=== PATIENT | female | born 1980 | race Caucasian/White ===

== ENCOUNTER 2023-04-17 08:00 | Outpatient (CLI) | payer BC, SELFPAY ==
--- NOTE | 2023-04-17 08:30 | ECG_ITS ---
Measurements Intervals [place] Rate: 97 P: 49 VT: 129 QRS: 21 QRSD: 87 T: 33 QT: 349 QTc: 445 Interpretive Statements SINUS RHYTHM WITHIN NORMAL LIMITS NO PREVIOUS ECG AVAILABLE FOR COMPARISON Electronically Signed On 04-17-2023 12:40:58 RISK MANAGER by Puma Yadav M.D.
== END 2023-04-17 08:01 | disposition home or self-care (01) ==
LOC: ANHSURGERY 08:04
PROVIDERS: Visit Provider Obstetrics & Gynecology
DX: N92.0 Excessive and frequent menstruation with regular cycle (principal); F17.210 Nicotine dependence, cigarettes, uncomplicated; Z01.818 Encounter for other preprocedural examination
CPT/HCPCS: 36415; 86850; 86900; 86901; 93005

== ENCOUNTER 2023-04-23 00:19 | Day surgery (SDC) | payer BC, SELFPAY ==
[2023-04-15 10:17] VITALS: BMI 36.6
--- NOTE | 2023-04-15 10:21 | PC.NURSE ---
Report to the Outpatient Waiting Room, entrance under the green pavilion located off [facility], at time 10:00 on date 04/23/23. Planned Procedure Time: 12:00. Time changes happen often and if your time is changed the preop area will call you the afternoon before. - You and your visitor will be asked to self-screen and do not enter if you have any COVID symptoms. - A mask is optional within the hospital at this time. Patients may have clear liquids (water, carbonated beverages, clear teas, apple juice) until 3 hours prior to surgery (9:00) with a maximum of 20 ounces. - No food from midnight until time of surgery Take the following medications with a SIP of water the morning of surgery: NONE DO NOT STOP ANY OF YOUR OTHER PRESCRIPTION MEDICATIONS PRIOR TO SURGERY ?EXCEPT THE FOLLOWING Medications to discontinue per physician: VITAMINS Date to take last dose: 04/19/23 Please no make-up, nail azeri, hairspray, perfume, deodorant, or body powder the day of surgery. No jewelry (including any body piercings) or valuables the day of surgery, leave them at home. Please take a shower or bath the night before, or the morning of, surgery with an antibacterial soap. Wear comfortable, loose fitting clothing. - Jewelry must be removed prior to entering the operating room. Rings and piercings that are not removed may be cut off. - The hospital will not accept responsibility for valuables. - Please leave all valuables, including medications, at home the day of surgery. If you are going home after surgery, a licensed lease purchase driver must drive you home. - NO public transportation without another adult if you receive anesthesia. - We recommend that an adult stay with you for 24 hours following discharge. - We also recommend that you do not drive, make important decision, drink alcoholic beverages, or take any drugs that were not prescribed by your health care provider for at least 24 hours after your discharge time. Follow any additional instructions given to you from your surgeon. If you or anyone in your household have experienced Covid symptoms in the past week, please notify your surgeon or the nurse liaison at the phone number below for possible testing. Telephone instructions given to PT - TRINA MCDOWELL and asked if any additional questions and then verbalized understanding. Patient advised to call surgeon office or pre surgery nurse liaison [phone] if any additional questions.
[2023-04-23] VITALS (9 sets, daily range): BP systolic 112–146; BP diastolic 41–89; PULSE 79–95; RESP 12–20; TEMP 36.6–36.8; O2SAT 91–100
[2023-04-23] MEDS: LACTATED RINGERS 1,000 ML 30 ML IV CONT ×3 (10:00→15:10)
[2023-04-23] MEDS: KETOROLAC 15 MG/ML VIAL (*BKC) IV PUSH (10:34)
[2023-04-23] MEDS: ACETAMINOPHEN 500 MG TABLET 1000 MG PO (10:34)
--- NOTE | 2023-04-23 11:28 | P.PNAN_ITS ---
Anes - Initial Pre Proc Eval Procedure: Operation Date: 04/23/23 12:00 Proposed Procedures p Robotic Assisted Hysterectomy with Bilateral Salpingectomy - Shahnaz Rosario MD Date/Time: 04/23/23 11:28 Surgeon: Shahnaz Rosario MD Pre Op Diagnosis: menorrhaghia Patient Data Age: 42 Gender: F Height: 1.65 m Weight: 103.5 kg Last Vital Signs Temp 36.6 C 04/23/23 10:00 Pulse 83 04/23/23 10:00 Resp 18 04/23/23 10:00 BP 146/89 H 04/23/23 10:00 Pulse Ox 96 04/23/23 10:00 O2 Del Method Room Air 04/23/23 10:00 Allergies Allergy/AdvReac Type Severity Reaction Status Date / Time Penicillins Allergy Unknown Hives Verified 04/23/23 10:29 morphine AdvReac Severe Headache Verified 04/15/23 10:15 Home Medications Medication Instructions Recorded Confirmed Type cholecalciferol (vitamin D3) 25 25 mcg PO DAILY 04/15/23 04/15/23 History mcg (1,000 unit) tablet (Vitamin D3) Patient hx anesthesia problems: none Family hx anesthesia problems: none Results Review: All pre-operative results and documents have been reviewed as part of the pre- operative evaluation. [facility] Past Medical History Medical History (Updated 04/23/23 @ 11:28 by Shantanu Fox MD) Obesity Family History Family History Mother Family history of malignant neoplasm of ovary Other Family history of allergic disorder Family history of cardiovascular disease Social History Social History Smoking packs per day: 1 Smoking cigarettes per day: 20.0 Years smoked: 20 Smoking pack-years: 20.00 Smoking status: Current every day smoker Tobacco type: cigarettes Alcohol intake: current Drinks per week: 10 Substance use: never Substance use type: does not use Living arrangements: with family Spiritual care concerns: No Anes - Eval Final PreProcedure Day of Procedure 04/23/23 11:28 Patient weight: obese Heart: regular rate and rhythm Lungs: clear to auscultation Airway: Mallampati scale class II Neurological: alert and oriented Last oral intake: >/= 8 hours ASA classification: III Emergent: no Anesthetic plan: proceed Anesthesia type and monitoring: general ETT and standard monitoring Results Review: All pre-operative results and documents have been reviewed as part of the pre- operative evaluation. Informed Consent: The patient's anesthetic plan and its attendant risks and benefits were discussed with the patient/family/POA. Questions were solicited and answers provided to the satisfaction of the patient/family/POA.
--- NOTE | 2023-04-23 12:00 | WPDHPUPDATE1 ---
History and Physical Update Update Date/Time: 04/23/23 12:00 correction - this is a robotic assisted total hysterectomy with bilateral salpingectomy. History and Physical has been reviewed, including an updated exam of the patient. There are NO changes in the patient's condition. Risks, benefits, and alternatives have been discussed and questions answered. Patient agrees to proceed with procedure.
[2023-04-23] MEDS: ceFAZolin 2 GM/D5W 50 ML 2 GM/50 ML BAG IVPB (12:09)
[2023-04-23] MEDS: SCOPOLAMINE 1 MG PATCH 1 PATCH TRANSDERM (12:55)
[2023-04-23] MEDS: METHYLENE BLUE 0.5% INJ 10 ML AMPULE 5 ML IRRIGATION (13:52)
--- NOTE | 2023-04-23 14:18 | W.PM.PROC2 ---
Procedure Note - Detailed Date of Procedure 04/23/23 Pre-op Diagnosis menorrhaghia Post-op Diagnosis Same Procedure Performed Robot assisted Total hysterectomy with bilateral salpingectomy. Surgeon Shahnaz Rosario MD Anesthesia General Indications heavy vaginal bleeding, pelvic pain Findings normal-appearing uterus, ovaries, and left tube, right tube was partially resected. Some scarring over the posterior cul-de-sac peritoneum. Description of Procedure This patient was taken to the operating room. She was prepped and draped in the dorsal lithotomy position after induction of general anesthesia. The uterine manipulator and Ranjeet cup were placed. This was done with a speculum and tenaculum. The speculum was placed. The cervix was grasped with a tenaculum. The stay sutures were placed at 3 and 9:00 a.m.. The stay sutures of 0 Vicryl were tied to the appropriately Size scope after it was slipped around the cervix.. The tip of the CHERIE manipulator was placed in the intrauterine cavity. The cup was slid into place around the cervix and into the fornices. It was locked into place. The sutures were then wrapped around the handle and tied under tension. A 8 mm skin incision was made in the left upper quadrant the abdomen. a 5 mm Visiport trocar was inserted into abdominal cavity and pneumoperitoneum was achieved. A 8 mm supraumbilical incision was made and a 8 mm trocar was inserted into the intrauterine cavity under direct visualization of the scope. an 8 mm incision was made in the right upper quadrant of the abdomen and an 8 mm robotic trocar was placed the inter uterine cavity under direct visualization the scope. An 11 mm trocar was inserted in the right upper quadrant of the abdomen rectal is a cystoscope after an incision was made there as well. The robot was docked. Electronic Orientation of the robot was performed. Bilateral ureteral lysis was performed. This was done from the pelvic brim down to the uterine artery. This was done with careful dissection using sharp and blunt dissection. The fallopian tubes were removed bilaterally. The mesosalpinx around the fallopian tubes were cauterized transected with LigaSure cautery. This was done in a bilateral fashion from the ovary to the uterine cornua. The fallopian tube was transected at the uterine cornu and amputated. The tube was taken out the left lower quadrant trocar site. In a stepwise fashion along the lateral aspects of the uterus the round ligament and broad ligaments were cauterized transected down to the level of the uterine arteries. A bladder flap was created in the bladder was moved distally to the end of the cervix and over the Ranjeet cup. The bilateral uterine arteries were cauterized and transected. Colpotomy was then performed. In a circumferential fashion the vagina was transected using unipolar cautery. The incision was made down on the Ranjeet cup. The uterus and cervix were taken out through the vagina. A pneumo occluder was placed in the vagina. The vaginal cuff was closed with a 0 V lock suture in a running fashion. The pelvis was irrigated with copious amounts antibiotic irrigation. The ureters were again examined and found to be intact and flowing freely under the uterine arteries into the bladder. The bladder was intact. It was examined directly. Cystoscopy was performed after administration of both the blue. Blue fluid was seen to egress from both ureteral orifices of the bladder. The vagina was irrigated with Betadine solution after removal of the Pneumo occluder. the trocars were removed after the robot was undocked. The skin was closed with subacute or Dermabond. The patient was taken to recovery room. She was stable condition. Sponge lap and needle counts were correct x2. Estimated Blood Loss 125 Urine Output 800 Drains Yes Packing No Pathology Yes Complications No immediate complications Condition Stable Disposition Floor
[2023-04-23] MEDS: fentaNYL CITRATE INJ (*CRX) 100 MCG/2 ML VIAL 25 MCG IV PUSH ×4 (14:33→14:55)
--- NOTE | 2023-04-23 15:50 | PC.NURSE ---
This patient, Lary Ennis, was received from PACU on 04/23/23 at 1550. Patient/family oriented to unit policies and routines
[2023-04-23] MEDS: SIMETHICONE 80 MG TAB.CHEW PO (16:04)
[2023-04-23] MEDS: DEXTROSE 5%/0.45% SOD CHL 1,000 ML 125 ML IV CONT (16:04)
[2023-04-23] MEDS: KETOROLAC 30 MG/ML VIAL (*BKC) IV PUSH (16:05)
[2023-04-23] MEDS: HYDROcodone/acetaminophen (*CRX) 5-325 MG TABLET 1 TAB PO (18:00)
[2023-04-24 00:20] VITALS: BP 108/62; PULSE 81; RESP 18; TEMP 36.8; O2SAT 96
[2023-04-24] MEDS: HYDROcodone/acetaminophen (*CRX) 5-325 MG TABLET 1 TAB PO ×2 (00:22→08:13)
[2023-04-24 05:53] VITALS: BP 103/53; PULSE 84; RESP 16; TEMP 37.2; O2SAT 97
--- NOTE | 2023-04-24 07:25 | PM.GYNPNOP ---
SWATCH CLERK - A/P Postoperative Procedures: Procedures Operation Date: 04/23/23 12:00 Actual Procedure Side Surgeon p Robotic Assisted Hysterectomy with Bilateral Salpingectomy Bilateral Shahnaz Rosario MD Postoperative day: 1 Postoperative status: doing well Postoperative plan: see orders Time Spent With Patient Time: Total time spent is greater than 50% in coordination of care (as documented) at patient's floor/unit and/or counseling patient: Time with patient: less than 15 minutes SWATCH CLERK- PN:Subj Post-Op Subjective Date/time seen: 04/24/23 07:25 Subjective: patient reports feeling better, patient has no complaints and pain is well controlled Exam Const: General: healthy appearing, comfortable and no acute distress Resp: Auscultation: clear to auscultation bilaterally, no rales, no rhonchi and no wheezes Cardio: Rate: regular rate Heart sounds: no click, no murmurs and no rubs GI: Inspection: non-distended Auscultation: normal bowel sounds Extrem: General: normal to inspection, no pedal edema and no calf tenderness SWATCH CLERK - PN: Obj Data Vital Signs Vital Signs: Vital Signs - 24 hr 04/23/23 10:00 04/23/23 14:20 04/23/23 14:30 Temperature 97.8 F 97.8 F Pulse Rate 83 95 90 Respiratory Rate 18 20 12 Blood Pressure 146/89 H 125/41 L 119/69 Pulse Oximetry 96 100 100 Oxygen Delivery Room Air Simple Face Mask Simple Face Mask Oxygen Flow Rate 8 8 04/23/23 14:45 04/23/23 15:00 04/23/23 15:15 Temperature Pulse Rate 92 90 84 Respiratory Rate 16 16 14 Blood Pressure 127/59 L 124/72 130/66 Pulse Oximetry 96 94 93 Oxygen Delivery Room Air Room Air Room Air Oxygen Flow Rate 04/23/23 15:25 04/23/23 15:45 04/23/23 20:32 Temperature 98 F 98.3 F Pulse Rate 92 79 91 Respiratory Rate 14 14 18 Blood Pressure 127/74 118/62 112/63 Pulse Oximetry 97 91 96 Oxygen Delivery Room Air Oxygen Flow Rate 04/24/23 00:20 04/24/23 00:20 04/24/23 05:53 Temperature 98.2 F 99.0 F Pulse Rate 81 81 84 Respiratory Rate 18 18 16 Blood Pressure 108/62 103/53 L Pulse Oximetry 96 96 97 Oxygen Delivery Room Air Oxygen Flow Rate 04/24/23 05:53 Temperature Pulse Rate 84 Respiratory Rate 16 Blood Pressure Pulse Oximetry 97 Oxygen Delivery Room Air Oxygen Flow Rate Intake/Output Intake/Output: Intake & Output 04/21/23 04/22/23 04/23/23 04/24/23 23:59 23:59 23:59 23:59 Intake Total 700 1300 Output Total 860 775 Balance -160 525 Meds/Results Medications: Active Medications Generic Name Dose Route Start Last Admin Trade Name Freq PRN Reason Stop Dose Admin Hydrocodone Bitart/Acetaminophen 1 tab 04/23/23 15:29 04/24/23 00:22 Hydrocodone/Acetaminophen (*Crx) 5-325 Mg Tablet PO 1 tab Q3H PRN Administration Pain Rated 5 or Less Hydrocodone Bitart/Acetaminophen 1 tab 04/23/23 15:29 Hydrocodone/Acetaminophen (*Crx) 10-325 Mg Tablet PO Q3H PRN Pain Rated 6 or Greater Dextrose/Sodium Chloride 1,000 mls @ 125 mls/hr 04/23/23 15:29 04/24/23 00:18 Dextrose 5% Sodium Chloride 0.45% IV CONT Infused .Q8H SIMONE Infusion Ibuprofen 600 mg 04/23/23 15:29 Ibuprofen 600 Mg Tablet PO Q6H PRN Cramping Ketorolac Tromethamine 30 mg 04/23/23 15:29 04/23/23 16:05 Ketorolac 30 Mg/Ml Vial (*Bkc) IV PUSH 04/28/23 15:28 30 mg Q6H PRN Administration Pain Rated 4-6 Naloxone HCl 0.1 mg 04/23/23 15:29 Naloxone Hcl 0.4 Mg/Ml Vial IV PUSH Q2M PRN Respiratory rate less than 10 Ondansetron HCl 4 mg 04/23/23 15:29 Ondansetron Inj 4 Mg/2 Ml Vial IV PUSH Q6H PRN Nausea And Vomiting Simethicone 80 mg 04/23/23 17:00 04/23/23 16:04 Simethicone 80 Mg Tab.Chew PO 80 mg TIDWM SIMONE Administration
[2023-04-24 07:59] VITALS: BP 107/57; PULSE 89; RESP 18; TEMP 37.2; O2SAT 97
[2023-04-24] MEDS: IBUPROFEN 600 MG TABLET PO (08:13)
[2023-04-24] MEDS: SIMETHICONE 80 MG TAB.CHEW PO (08:13)
== END 2023-04-24 10:10 | disposition home or self-care (01) ==
LOC: ANHSURGERY 13:15 → ANHOB2 15:32
PROVIDERS: Visit Provider Obstetrics & Gynecology
PROC: (CPT 58571; principal; 2023-04-23 12:00)
DX: D25.1 Intramural leiomyoma of uterus (principal); N88.8 Other specified noninflammatory disorders of cervix uteri; N83.8 Other noninflammatory disorders of ovary, fallopian tube and broad ligament; N92.0 Excessive and frequent menstruation with regular cycle; F17.210 Nicotine dependence, cigarettes, uncomplicated; E66.9 Obesity, unspecified; Z68.38 Body mass index [BMI] 38.0-38.9, adult
CPT/HCPCS: 58571; S2900; 88307; 99199; A9270; J0690; J1100; J1170; J1885; J2250; J2405; J2704; J3010; J7030; J7120; Q9968

== ENCOUNTER 2023-04-29 14:47 | Inpatient (IN) | payer BC, SELFPAY ==
[2023-04-29] VITALS (10 sets, daily range): BP systolic 108–135; BP diastolic 40–72; PULSE 111–141; RESP 16–25; TEMP 38.5–39.5; O2SAT 93–100; BMI 38.2
--- NOTE | ~2023-04-29 | XR_ITS ---
EXAMINATION: XR chest 1V portable DATE: 04/29/2023 16:22 INDICATION: Postoperative fever and weakness TECHNIQUE: frontal view of the chest was obtained. COMPARISON: None FINDINGS: Bandlike opacity at the right mid and left lower lung zones, with configuration favoring discoid atel ectasis over pneumonia. No pulmonary edema, pleural effusion or pneumothorax. The cardiomediastinal s ilhouette is normal. Visualized bones and soft tissues are unremarkable. IMPRESSION: 1. Bandlike opacities in the right mid and left lower lung zones with configuration favoring discoid atelectasis over pneumonia. Reviewed, dictated and finalized at location A. AGE DRIER IMPRESSION: 1. Bandlike opacities in the right mid and left lower lung zones with configura tion favoring discoid atelectasis over pneumonia.
--- NOTE | ~2023-04-29 | CT_ITS ---
EXAMINATION: CTA chest PE abdomen pel DATE: 04/29/2023 17:19 INDICATION: Shortness of breath and fever. Postop from hysterectomy. TECHNIQUE: Computed tomography angiography (CTA) of the chest was performed with 100 mL Omnipaque-350 intravenous contrast timed to evaluate the pulmonary arteries. Coronal maximum intensity projection 3D-reconstructions were created by the technologist. Computed tomography (CT) of the abdomen and pelv is was performed with intravenous contrast. Automated exposure control and iterative reconstruction t echnique were employed. The dose-length product was 2721.80 mGy-cm. COMPARISON: CT abdomen and pelvis 07/06/2016 FINDINGS: CTA chest: The lungs demonstrate mild atelectasis. There are trace pleural effusions. The heart size is normal. No pericardial effusion. There is no pulmonary embolus. There is moderate thoracic spondyl osis. CT abdomen and pelvis: The liver, gallbladder, spleen, pancreas, adrenal glands, and kidneys are norm al. There is 8.2 x 6.5 x 4.7 cm collection of fluid and gas in the pelvis. There is fat stranding and gas in the peritoneum and body wall, consistent with recent surgery. There are no pathologically enl arged lymph nodes. There is moderate lumbar spondylosis. IMPRESSION: 1. 8.2 x 6.5 x 4.0 cm postoperative fluid collection in the hysterectomy bed, consistent with abscess versus subacute hematoma. 2. No pulmonary embolus. Reviewed, dictated and finalized at location E. ER SCANNING TECHNICIAN IMPRESSION: 1. 8.2 x 6.5 x 4.0 cm postoperative fluid collection in the hysterectomy bed, c onsistent with abscess versus subacute hematoma. 2. No pulmonary embolus.
--- NOTE | 2023-04-29 15:22 | ECG_ITS ---
Measurements Intervals [place] Rate: 127 P: 28 WA: 115 QRS: 9 QRSD: 92 T: 5 QT: 325 QTc: 474 Interpretive Statements SINUS TACHYCARDIA WITH SHORT WA INTERVAL BORDERLINE ST-T WAVE ABNORMALITY- INF/LAT LEADS LEADS BASELINE ARTIFACT- I, III, AVL ABNORMAL ECG COMPARED TO ECG 04/17/2023 08:23:14 [address] NOW PRESENT ST (T WAVE) DEVIATION NOW PRESENT Electronically Signed On 04-29-2023 16:34:54 STEEL PLACER by Hemal Antunez D.O.
--- NOTE | 2023-04-29 15:27 | ED.FEVER ---
HPI - Fever General Chief Complaint: Fever <TAMI Miller Last Filed: 05/01/23 20:20> Stated Complaint: fever s/p hysterectomy <TAMI Miller Last Filed: 05/01/23 20:20> Time Seen by Provider: 04/29/23 15:27 <TAMI Miller Last Filed: 05/01/23 20:20> Focused HPI: This is a 42 year old female that presents to the ER for fever. Associated with nausea, vomiting, and cough. Reports recent hysterectomy with Dr. Rosario. GENERAL: Ill-appearing, well-nourished, and in no acute distress. HEAD: Normocephalic, atraumatic. CHEST: Clear to auscultation. ?No respiratory distress. HEART: Regular rhythm, tachycardic NEURO: ?Alert and oriented x3. Patient screened in triage and initial orders placed.? ?Additional care and disposition to be based upon?diagnostic testing and treatment. <TAMI Miller Last Filed: 05/01/23 20:20> Related Data Home Medications: Home Medications Medication Instructions Recorded Confirmed cholecalciferol (vitamin D3) 25 25 mcg PO DAILY 04/15/23 04/29/23 mcg (1,000 unit) tablet (Vitamin D3) oxycodone-acetaminophen 5 mg-325 1 tablet PO Q4H PRN Pain (Scale 04/29/23 04/29/23 mg tablet Score 7-10) <TAMI Miller Last Filed: 05/01/23 20:20> Allergies/Adverse Reactions: Allergies Allergy/AdvReac Type Severity Reaction Status Date / Time Penicillins Allergy Unknown Hives Verified 04/30/23 09:38 morphine AdvReac Severe Headache Verified 04/29/23 20:49 <TAMI Miller Last Filed: 05/01/23 20:20> Review of Systems Review of Systems: CONSTITUTIONAL: Reports fever RESPIRATORY: Reports cough GASTROINTESTINAL: Reports abdominal pain, nausea, vomiting <TAMI Miller Last Filed: 05/01/23 20:20> All systems reviewed & are unremarkable except as noted in HPI and below <TAMI Miller Filed: 05/01/23 20:20> PMFSH Past Medical History Medical History: Medical History (Updated 04/30/23 @ 11:48 by Shahnaz Rosario MD) Multiple sclerosis Obesity <Claire Chapman PA-C - Last Filed: 05/01/23 20:20> Surgical History Surgical History: Surgical History (Updated 04/30/23 @ 11:33 by Og Doe DO) History of History of hysterectomy <Claire Chapman PA-C - Last Filed: 05/01/23 20:20> Family History Family History: Family History Mother Family history of malignant neoplasm of ovary Other Family history of allergic disorder Family history of cardiovascular disease <Calire Chapman PA-C - Last Filed: 05/01/23 20:20> Social History Social History: Social History Smoking packs per day: 1 Smoking cigarettes per day: 20.0 Years smoked: 20 Smoking pack-years: 20.00 Smoking status: Current every day smoker Tobacco type: cigarettes Alcohol intake: current Drinks per week: 1 Substance use: never Substance use type: does not use Do You Feel Safe in your Home?: Yes Lack of Transportation: No Lack of Food: Never True Current Housing: I Have Housing Concerned About Future Housing: No Difficulty Paying Gas/Electric Bills: No Difficulty Paying for Meds: No Currently Unemployed: No Education: Associate Degree Difficulty w/ Childcare or Family Care: No Living arrangements: with family Spiritual care concerns: No <Claire Chapman PA-C - Last Filed: 05/01/23 20:20> Exam Narrative: GENERAL: Ill-appearing, well-nourished, and in no acute distress. HEAD: Normocephalic, atraumatic. EYES: EOMI. CHEST: Clear to auscultation. No respiratory distress. No wheezes rales or rhonchi HEART: Regular rate and rhythm. No murmur heard. Normal peripheral pulses. ABDOMEN: Soft, nondistended. Incisions are clean/dry/intact EXTREMITIES: Normal range of motion. No edema. SKIN: Warm, dry, no rash. NEURO: No focal
[2023-04-29] MEDS: ONDANSETRON INJ 4 MG/2 ML VIAL IV PUSH ×2 (16:25→18:16)
[2023-04-29 16:26] LABS: Basophils Percent Auto 0.3 % (0.2-1.2); Hematocrit 37.3 % (37.0-47.0); Hemoglobin 12.3 g/dL (12.0-15.0); Immature Granulocyte Absolute 0.08 K/mm3 (0.00-0.031); Immature Granulocyte Percent A 0.5 % (0-0.5); Lymphocytes Absolute Auto 0.98 K/mm3 (0.9-3.2); Lymphocytes Percent Auto 6.6 % (18.3-44.2); Mean Platelet Volume 9.7 fl (7.4-10.4); Monocytes Absolute Auto 0.9 K/mm3 (0.1-0.6); Monocytes Percent Auto 5.7 % (2.6-8.5); Neutrophils Absolute Auto 12.8 K/mm3 (1.3-6.7); Neutrophils Percent Auto 86.9 % (45.5-73.1); Platelet Count Result 339 k/mm3 (150-375); Red Cell Distribution Width 13.7 % (11.5-14.5); White Blood Count 14.8 K/mm3 (4.5-10.0)
[2023-04-29] MEDS: SODIUM CHLORIDE 0.9% IV 1,000 ML 999 ML IV CONT (16:26)
[2023-04-29 16:38] LABS: Partial Thromboplastin Time 35.3 SECONDS (22.3-36.8)
--- NOTE | 2023-04-29 16:41 | ED.FEVER ---
HPI - Fever General Chief Complaint: Fever Stated Complaint: fever s/p hysterectomy Time Seen by Provider: 04/29/23 15:27 History of Present Illness HPI Narrative: Patient is a 42-year-old female here with fever and fatigue. She had a hysterectomy performed [address] Rosario. She states that she was feeling quite well and healing as expected. On Thursday she was up walking around and no longer had any postoperative vaginal bleeding. She states that she has been having constipation since her procedure. She has been using multiple laxatives. She believes that the opiates she was taken postoperatively likely contribute to her constipation and discontinue these on Thursday. She has only been having liquid stool output since that time but does feel the urge to defecate. She denies any abdominal pain. No vaginal discharge or bleeding. No urinary symptoms. Yesterday she began feeling poorly with more fatigue. This morning she woke up drenched in sweat and took an ibuprofen around 10 30 this morning. She did contact Dr. Leyva office who recommended she come into the emergency department for evaluation. She has had a mild cough which is nonproductive in nature. No known sick contacts. Related Data Home Medications Medication Instructions Recorded Confirmed cholecalciferol (vitamin D3) 25 25 mcg PO DAILY 04/15/23 04/15/23 mcg (1,000 unit) tablet (Vitamin D3) Allergies Allergy/AdvReac Type Severity Reaction Status Date / Time Penicillins Allergy Unknown Hives Verified 04/23/23 10:29 morphine AdvReac Severe Headache Verified 04/15/23 10:15 Review of Systems Review of Systems: All systems reviewed & are unremarkable except as noted in HPI and below PMFSH Past Medical History Medical History (Updated 04/29/23 @ 17:49 by Angélica Richmond MD) Obesity Family History Family History Mother Family history of malignant neoplasm of ovary Other Family history of allergic disorder Family history of cardiovascular disease Social History Social History Smoking packs per day: 1 Smoking cigarettes per day: 20.0 Years smoked: 20 Smoking pack-years: 20.00 Smoking status: Current every day smoker Tobacco type: cigarettes Alcohol intake: current Drinks per week: 10 Substance use: never Substance use type: does not use Living arrangements: with family Spiritual care concerns: No Exam Narrative: GENERAL: Well-appearing, well-nourished, and in no acute distress. HEAD: Normocephalic, atraumatic. EYES: PERRLA and EOMI. ENT: Nares clear. Mucous membranes moist. NECK: Supple. CHEST: Clear to auscultation. No respiratory distress. HEART: Regular rate and rhythm. Normal peripheral pulses. ABDOMEN: Soft, nontender, nondistended. Three laparoscopic incision boards appear clean and dry with overlying skin glue present. No surrounding erythema, no tenderness. EXTREMITIES: Normal range of motion. No edema. SKIN: Warm to touch, dry, no rash. NEURO: No focal deficits. Alert and oriented x3. PSYCH: Normal mood and affect. Course SCIENTIFIC RESEARCH ASSOCIATE/PA Physician Supervision MSE performed in triage by midlevel. 1642 chart review performed by myself. Triage vitals show tachycardia, fever of 103.1. Patient here for fever, had hysterectomy [address] Rosario. Triage workup reviewed. White blood cell count of 14.8. CXR shows band like opacity in mid right and left lower lobes favoring atelectasis. Patient seen evaluated, nontoxic appearing. Additional septic lab work ordered including a lactic and a 30 cc/kg IV fluid bolus. Will do CT chest to evaluate for possible PE as well as pneumonia. CT abdomen pelvis ordered to evaluate for possible postoperative infectious process. Patient currently denying any pain and refusing pain medication. CT negative for PE. CT abdomen pelvis shows a 8 x 6 x 4 mm postopera
[2023-04-29 16:58] LABS: Alanine Aminotransferase 17 U/L (6-35); Alkaline Phosphatase 133 U/L (38-126); Anion Gap 10 mmol/L (8-16); Aspartate Amino Transferase 23 U/L (14-36); Bilirubin,Total 0.4 mg/dL (0.2-1.3); Blood Urea Nitrogen 10 mg/dL (7-17); Calcium 9.1 mg/dL (8.4-10.2); Carbon Dioxide 23 mmol/L (22-30); Chloride 100 mmol/L (98-107); Estimated CRCL calculation 126 ml/min; Estimated Glomerular Filt Rate > 60; Glucose 130 mg/dL (65-110); Potassium 3.2 mmol/L (3.4-5.0); Sodium 133 mmol/L (137-145)
[2023-04-29 17:06] LABS: Influenza A QL RT-PCR Negative (Negative); Influenza B QL RT-PCR Negative (Negative); RSV RNA, RT-PCR Negative (Negative); SARS-CoV-2 RNA PCR Negative (Negative)
[2023-04-29] MEDS: LACTATED RINGERS 1,000 ML 999 ML IV CONT ×2 (17:20)
[2023-04-29 17:23] LABS: Appearance Urine Cloudy (Clear); Bacteria Urine 4+ /hpf; Bilirubin Urine Negative (Negative); Blood Urine 3+ (Negative); Color Urine Dark Yellow (Yellow); Glucose Urine UA Negative (Negative); Ketones Urine 1+ mg/dL (Negative); Leukocyte Esterase Ur 1+ LEU/UL (Negative); Need Manual Microscopic Reviewed; Nitrate Urine Negative (Negative); Protein Urine 2+ mg/dL (Negative); Specific Grav Ur 1.026 (1.001-1.035); Squamous Epithelial Cell Urine Moderate /hpf (Few); Urobilinogen Urine 0.2 mg/dL (<2.0); WBC Urine 51-100 /hpf; pH Urine 5.5 (5.0-9.0)
[2023-04-29 17:25] LABS: Add Urine Microscopic? YES
[2023-04-29 17:43] LABS: CRP 30.8 mg/dL (<1.0)
[2023-04-29 18:11] LABS: Lipase 39 U/L (23-300)
[2023-04-29] MEDS: ACETAMINOPHEN 500 MG TABLET 1000 MG PO (18:18)
[2023-04-29] MEDS: CEFEPIME 2 GM/NS 50 ML 2 GM/50 ML BAG IVPB (18:19)
[2023-04-29] MEDS: SODIUM CHLORIDE 0.9% IV 250 ML 999 ML (19:10)
[2023-04-29] MEDS: metroNIDAZOLE 500 MG/ISO 100ML 500 MG/100 ML BAG 100 MG IVPB (20:00)
[2023-04-29] MEDS: VANCOMYCIN 1,250 MG/NS 250 ML 1,250 MG/250 ML BAG 166.67 MG IVPB ×2 (20:01→21:29)
--- NOTE | 2023-04-29 20:32 | ADMGEN ---
This patient, Lary Ennis, was admitted to Medical Room 347-. Patient/family oriented to hospital policies and general routines including ID bracelet, bed and alarms, visiting hours, pain management, procedures, bathroom and other care routines, personal items, smoking policy, room service/diet, and visiting hours. Information on how to activate the Rapid Response Team has been discussed. Patient/Family are encouraged to report perceived risks to care and to ask questions if they do not understand what they are told or what they should do.
[2023-04-29] MEDS: LACTATED RINGERS 1,000 ML 150 ML IV CONT (21:29)
[2023-04-29 22:51] LABS: MRSA (PCR) NOT DETECTED (NOT DETECTE)
[2023-04-30] VITALS (17 sets, daily range): BP systolic 100–135; BP diastolic 55–75; PULSE 80–110; RESP 14–24; TEMP 36.2–39.3; O2SAT 92–99
[2023-04-30] MEDS: IBUPROFEN 400 MG TABLET 800 MG PO (00:18)
[2023-04-30] MEDS: LACTATED RINGERS 1,000 ML 150 ML IV CONT ×2 (00:20→14:48)
[2023-04-30 06:17] LABS: Estimated CRCL calculation 126 ml/min; Estimated Glomerular Filt Rate > 60
[2023-04-30] MEDS: VANCOMYCIN 1,500 MG/NS 500 ML 1,500 MG/500 ML BAG 250 MG IVPB ×2 (08:40→20:01)
[2023-04-30] MEDS: cefTRIAXone 2 GM/NS 100 ML 2 GM/100 ML BAG IVPB (10:00)
[2023-04-30] MEDS: metroNIDAZOLE 500 MG/ISO 100ML 500 MG/100 ML BAG 100 MG IVPB (10:38)
--- NOTE | 2023-04-30 11:32 | WPDANESEPPF ---
Anes - Initial Pre Proc Eval Procedure: Operation Date: 04/30/23 13:00 Proposed Procedures p Incision and Drainage of Pelvic and Vaginal Abscess with Drain Placement - Shahnaz Rosario MD Date/Time: 04/30/23 11:32 Surgeon: Shahnaz Rosario MD Pre Op Diagnosis: Post operative pelvic abscess Patient Data Age: 42 Gender: F Height: 1.65 m Weight: 104.4 kg Last Vital Signs Temp 36.8 C 04/30/23 05:46 Pulse 80 04/30/23 08:04 Resp 16 04/30/23 05:46 BP 100/64 04/30/23 05:46 Pulse Ox 97 04/30/23 09:55 O2 Del Method Room Air 04/30/23 09:55 Allergies Allergy/AdvReac Type Severity Reaction Status Date / Time Penicillins Allergy Unknown Hives Verified 04/30/23 09:38 morphine AdvReac Severe Headache Verified 04/29/23 20:49 Home Medications Medication Instructions Recorded Confirmed Type cholecalciferol (vitamin D3) 25 25 mcg PO DAILY 04/15/23 04/29/23 History mcg (1,000 unit) tablet (Vitamin D3) oxycodone-acetaminophen 5 mg-325 1 tablet PO Q4H PRN Pain (Scale 04/29/23 04/29/23 History mg tablet Score 7-10) Laboratory Tests 04/29/23 04/29/23 04/29/23 16:15 16:15 16:16 WBC 14.8 H K/mm3 (4.5-10.0) RBC 4.10 L M/mm3 (4.2-5.4) Hgb 12.3 g/dL (12.0-15.0) Hct 37.3 % (37.0-47.0) MCV 91.0 fl (80-100) MCH 30.0 pg (26-34) MCHC 33.0 g/dl (32-36) RDW 13.7 % (11.5-14.5) Plt Count 339 k/mm3 (150-375) MPV 9.7 fl (7.4-10.4) Immature Gran % (Auto) 0.5 % (0-0.5) Neut % (Auto) 86.9 H % (45.5-73.1) Lymph % (Auto) 6.6 L % (18.3-44.2) Rice % (Auto) 5.7 % (2.6-8.5) Eos % (Auto) 0.0 % (0-4.4) Baso % (Auto) 0.3 % (0.2-1.2) Lymph # (Auto) 0.98 K/mm3 (0.9-3.2) Rice # (Auto) 0.9 H K/mm3 (0.1-0.6) Eos # (Auto) 0.0 K/mm3 (0-0.3) Baso # (Auto) 0.0 K/mm3 (0.0-0.1) Abs Immat Gran (auto) 0.08 H K/mm3 (0.00-0.031) Absolute Neuts (auto) 12.8 H K/mm3 (1.3-6.7) Absolute Nucleated RBC 0.0 K/mm3 (0.0-0.012) Nucleated RBC % 0.0 % (0.0-0.2) PT 14.0 Seconds (11.1-14.7) INR 1.0 APTT 35.3 SECONDS (22.3-36.8) Sodium 133 L mmol/L (137-145) Potassium 3.2 L mmol/L (3.4-5.0) Chloride 100 mmol/L (98-107) Carbon Dioxide 23 mmol/L (22-30) Anion Gap 10 mmol/L (8-16) BUN 10 mg/dL (7-17) Creatinine 0.60 L mg/dL (0.7-1.0) Estim Creat Clear Calc 126 ml/min Estimated GFR > 60 (59 - ) Glucose 130 H mg/dL (65-110) Lactic Acid 1.0 mmol/L (0.7-2.0) Calcium 9.1 mg/dL (8.4-10.2) Total Bilirubin 0.4 mg/dL (0.2-1.3) AST 23 U/L (14-36) ALT 17 U/L (6-35) Alkaline Phosphatase 133 H U/L (38-126) C-Reactive Protein 30.8 H mg/dL (<1.0) Total Protein 7.0 g/dL (6.3-8.2) Albumin 4.0 g/dL (3.5-5.1) Lipase 39 U/L Cancelled (23-300) Urine Color Urine Appearance Urine pH Ur Specific [place] Urine Protein Urine Glucose (UA) Urine Ketones Ur Blood (Man) Urine Nitrate Urine Bilirubin Urine Urobilinogen Add Ur Microanalysis Leukocyte Esterase Rfl Urine RBC Urine WBC Ur Squamous Epith Cells Urine Bacteria Urine Casts Nasal MRSA (PCR) Influenza A (RT-PCR) Negative (Negative) Influenza B (RT-PCR) Negative (Negative) RSV (RT-PCR) Negative (Negative) SARS-CoV-2 RNA (RT-PCR) Negative (Negative) 04/29/23 04/29/23 04/30/23 17:
[2023-04-30] MEDS: LACTATED RINGERS 1,000 ML 30 ML IV CONT (11:40)
--- NOTE | 2023-04-30 11:45 | PM.IMHP ---
H&P: HPI History of Present Illness Date/Time: 04/30/23 11:45 Chief Complaint: fever Narrative: 42-year-old female who presents emergency department with fever and diarrhea. Very little pelvic pain. She was 1 week postop from us hysterectomy. Laparoscopic hysterectomy. Imaging showed a 8 cm pelvic abscess over the vaginal cuff. Discussed treatment options with patient. Options offered included a CT-guided drain placement and transvaginal drain placement in the operating room. Observation with antibiotics was also offered. We agreed to place the drain transvaginally with I and D of the abscess. She understands risks. She understands that injuries may occur as result in hospitalization, more surgery, and severe illness. She understands risk of hemorrhage. She denies any nausea, vomiting, fever, chills. She denies any chest pain shortness of breath. Review of Systems Review of Systems: All systems reviewed & are unremarkable except as noted in HPI and below Constitutional: Constitutional: Denies chills, Denies fatigue, Denies fever(s) and Denies weakness Eyes: Eyes: Denies blurry vision, Denies change in vision, Denies loss of peripheral vision, Denies loss of vision, Denies other visual disturbances and Denies eye pain ENT: Denies vertigo, Denies dizziness, Denies hearing loss, Denies mouth pain, Denies nasal obstruction, Denies neck mass and Denies neck pain Cardiovascular: Cardiovascular: Denies chest pain, Denies diaphoresis, Denies syncope, Denies leg edema and Denies dyspnea Respiratory: Respiratory: Denies chest congestion, Denies cough, Denies hemoptysis, Denies dyspnea and Denies wheezing Gastrointestinal: Gastrointestinal: Denies abdominal pain, Denies constipation, Denies diarrhea, Denies nausea and Denies vomiting Genitourinary: Genitourinary: Denies hematuria, Denies change in libido, Denies nocturia, Denies genital lesions, Denies flank pain and Denies urinary urgency Musculoskeletal: Musculoskeletal: Denies abnormal gait, Denies back pain, Denies myalgias, Denies arthralgias, Denies joint swelling, Denies muscle weakness and Denies neck pain Integumentary/Breasts: Skin/Breast: Denies swelling, Denies breast pain, Denies breast mass, Denies dry skin, Denies nipple discharge, Denies unusual bruising and Denies jaundice Neurologic: Denies Neuro-related abnormal movements, Denies Abnormal speech present, Denies abnormal gait, Denies behavioral changes, Denies confusion, Denies vertigo, Denies dizziness, Denies syncope, Denies loss of vision, Denies memory loss, Denies convulsions and Denies weakness Psychiatric: Psychiatric: Denies abnormal sleep pattern, Denies behavioral changes, Denies change in libido, Denies confusion, Denies depression, Denies anhedonia and Denies memory loss Endocrine: Endocrine: Reports no additional endocrine complaints, Denies change in libido and Denies fatigue Hematologic/Lymphatic: Hematologic/Lymphatic: Reports no additional hematologic/lymphatic complaints Allergic/Immunologic: Allergic/Immunologic: Reports no additional allergic/immunologic complaints and Denies wheezing PMFSH Past Medical History Medical History (Updated 04/30/23 @ 11:48 by Shahnaz Rosario MD) Multiple sclerosis Obesity Surgical History Surgical History (Updated 04/30/23 @ 11:33 by Og Doe DO) History of History of hysterectomy Family History Family History Mother Family history of malignant neoplasm of ovary Other Family history of allergic disorder Family history of cardiovascular disease Social History Social History Smoking packs per day: 1 Smoking cigarettes per day: 20.0 Years smoked: 20 Smoking pack-years: 20.00 Smoking status: Current every day smoker Tobacco type: cigarettes Alcohol intake: current Drinks per week: 1 Substance use: never
--- NOTE | 2023-04-30 11:49 | WPDHPUPDATE1 ---
History and Physical Update Update Date/Time: 04/30/23 11:49 History and Physical has been reviewed, including an updated exam of the patient. There are NO changes in the patient's condition. Risks, benefits, and alternatives have been discussed and questions answered. Patient agrees to proceed with procedure.
[2023-04-30] MEDS: SCOPOLAMINE 1 MG PATCH 1 PATCH TRANSDERM (12:04)
--- NOTE | 2023-04-30 12:33 | PC.NURSE ---
Pt to PACU at 1135 04/30/23.
--- NOTE | 2023-04-30 12:59 | P.OP_ITS ---
Procedure Note - Detailed Date of Procedure 04/30/23 Pre-op Diagnosis Post operative pelvic abscess Post-op Diagnosis Same Procedure Performed Transvaginal I and D of pelvic abscess with drain placement. Surgeon Shahnaz Rosario MD Anesthesia MAC Findings Tense mass at the apex of the vagina. Intact cuff. Description of Procedure the patient was taken the operating room. She was prepped and draped in the dorsal lithotomy position. This was done after MAC anesthesia was applied. Speculum was placed in the vagina. A space in the vaginal cuff was open and using a packing forceps. The abscess was pierced. Copious amount of foul- smelling purulent fluid egress from the defect. A [place] drain was placed in the defect. It was sutured in place with a 3-0 nylon. The speculum the [place] drain was cut to about 3-4 inches outside the vagina Estimated Blood Loss 10 Urine Output 400 Drains Yes ( vaginal Chai) Complications No immediate complications Disposition Floor
[2023-04-30] MEDS: CHOLECALCIFEROL 1,000 UNITS TABLET 1000 UNITS PO (13:51)
[2023-04-30] MEDS: CLINDAMYCIN 900 MG/D5W 50 ML 900 MG/50 ML PIGGYBACK 50 MG IVPB ×2 (14:48→23:21)
[2023-04-30 17:16] LABS: Anion Gap 4 mmol/L (8-16); Blood Urea Nitrogen 8 mg/dL (7-17); Calcium 7.9 mg/dL (8.4-10.2); Carbon Dioxide 24 mmol/L (22-30); Chloride 105 mmol/L (98-107); Estimated CRCL calculation 148 ml/min; Estimated Glomerular Filt Rate > 60; Glucose 107 mg/dL (65-110); Sodium 133 mmol/L (137-145)
[2023-04-30] MEDS: POTASSIUM CHLORIDE 20 MEQ ER TABLET 40 MEQ PO (17:27)
[2023-05-01 06:00] VITALS: BP 114/62; PULSE 83; RESP 16; TEMP 36.7; O2SAT 98
[2023-05-01] MEDS: CLINDAMYCIN 900 MG/D5W 50 ML 900 MG/50 ML PIGGYBACK 50 MG IVPB (06:44)
[2023-05-01 07:14] LABS: Estimated CRCL calculation 126 ml/min; Estimated Glomerular Filt Rate > 60
[2023-05-01 07:26] LABS: Vancomycin Trough 6.9 ug/mL (10.0-20.0)
[2023-05-01] MEDS: cefTRIAXone 2 GM/NS 100 ML 2 GM/100 ML BAG IVPB (08:16)
[2023-05-01] MEDS: CHOLECALCIFEROL 1,000 UNITS TABLET 1000 UNITS PO (08:16)
[2023-05-01 08:30] LABS: Hematocrit 29.7 % (37.0-47.0); Hemoglobin 9.9 g/dL (12.0-15.0); Mean Corpuscular HGB Conc 33.3 g/dl (32-36); Mean Corpuscular Hemoglobin 30.7 pg (26-34); Mean Corpuscular Volume 92.2 fl (80-100); Mean Platelet Volume 10.4 fl (7.4-10.4); Platelet Count Result 305 k/mm3 (150-375); Red Blood Count 3.22 M/mm3 (4.2-5.4); Red Cell Distribution Width 14.3 % (11.5-14.5); White Blood Count 12.3 K/mm3 (4.5-10.0)
--- NOTE | 2023-05-01 08:31 | PM.GYNPNOP ---
PYTHON ARCHITECT - A/P Assessment and plan (1) Postoperative abscess of pelvis in female: Code(s): T81.49XA - Infection following a procedure, other surgical site, initial encounter; N73.9 - Female pelvic inflammatory disease, unspecified Status: Acute Assessment and Plan: Drain placed yesterday and pelvic abscess. Afebrile for greater than 24 hours, to discharge Postoperative Procedures: Procedures Operation Date: 04/30/23 13:00 Actual Procedure Side Surgeon p Transvaginal Incision and Drainage of Pelvic and Vaginal Abscess with Drain Placement Not Applicable Shahnaz Rosario MD Postoperative day: 1 Postoperative status: doing well Postoperative plan: see orders Time Spent With Patient Time: Total time spent is greater than 50% in coordination of care (as documented) at patient's floor/unit and/or counseling patient: Time with patient: less than 15 minutes PYTHON ARCHITECT- PN:Sandee Post-Op Subjective Date/time seen: 05/01/23 08:31 Subjective: patient reports feeling better, patient has no complaints and pain is well controlled Exam Const: General: healthy appearing, comfortable and no acute distress Resp: Auscultation: clear to auscultation bilaterally, no rales, no rhonchi and no wheezes Cardio: Rate: regular rate Heart sounds: no click, no murmurs and no rubs GI: Inspection: non-distended Auscultation: normal bowel sounds Extrem: General: normal to inspection, no pedal edema and no calf tenderness PYTHON ARCHITECT - PN: Obj Data Vital Signs Vital Signs: Vital Signs - 24 hr 04/30/23 08:41 04/30/23 09:55 04/30/23 12:55 Temperature 97.2 F L Pulse Rate 106 H Respiratory Rate 15 Blood Pressure 119/55 L Pulse Oximetry 97 99 Oxygen Delivery Room Air Room Air Simple Face Mask Oxygen Flow Rate 8 04/30/23 13:10 04/30/23 13:25 04/30/23 13:40 Temperature Pulse Rate 96 97 98 Respiratory Rate 22 H 16 24 H Blood Pressure 120/69 122/61 124/66 Pulse Oximetry 92 95 95 Oxygen Delivery Room Air Room Air Room Air Oxygen Flow Rate 04/30/23 13:56 04/30/23 14:17 04/30/23 14:40 Temperature 98.1 F 98.3 F 98.9 F Pulse Rate 95 103 H 96 Respiratory Rate 18 14 14 Blood Pressure 131/75 121/71 131/73 Pulse Oximetry 94 98 94 Oxygen Delivery Oxygen Flow Rate 04/30/23 20:01 05/01/23 06:00 Temperature 98.5 F 98.1 F Pulse Rate 81 83 Respiratory Rate 18 16 Blood Pressure 122/73 114/62 Pulse Oximetry 96 98 Oxygen Delivery Oxygen Flow Rate Intake/Output Intake/Output: Intake & Output 04/28/23 04/29/23 04/30/23 05/01/23 23:59 23:59 23:59 23:59 Intake Total 3900 3590 250 Output Total 1500 950 Balance 3900 2090 -700 Meds/Results Medications: Active Medications Generic Name Dose Route Start Last Admin Trade Name Freq PRN Reason Stop Dose Admin Acetaminophen 1,000 mg 04/29/23 20:18 Acetaminophen 500 Mg Tablet PO Q6H PRN Mild Pain (1-3) or Fever Fentanyl Citrate 25 mcg 04/30/23 11:58 Fentanyl Citrate Inj (*Crx) 100 Mcg/2 Ml Vial IV PUSH Q2M PRN Pain Ceftriaxone Sodium 2 gm in 100 mls @ 200 mls/hr 04/30/23 10:00 05/01/23 08:16 Rocephin 2 Gm/Ns 100 Ml IVPB 200 mls/hr DAILY SIMONE Administration Clindamycin Phosphate 900 mg in 50 mls @ 50 mls/hr 04/30/23 14:00 05/01/23 06:44 Cleocin 900 Mg/D5w 50 Ml IVPB 50 mls/hr Q8H SIMONE Administration Ibuprofen 800 mg 04/29/23 20:16 04/30/23 00:18 Ibuprofen 400 Mg Tablet PO 800 mg Q8H PRN Administration Pain or Fever Ondansetron HCl 4 mg 04/30/23 11:58 Ondansetron Inj 4 Mg/2 Ml Vial IV PUSH ONCE PRN Nausea Oxycodone/Acetaminophen 1 tablet 04/29/23 20:46 Oxycodone/Acetaminophen (*Crx) 5-325 Mg Tablet PO Q4H PRN Pain (Scale Score 7-10) Vitamin D 1,000 units 04/30/23 09:00 05/01/23 08:16 Cholecalciferol 1,000 Units Tablet PO 1,000 units DAILY SIMONE Administration Radiology Results: ITS Impressions Chest X-Ray 04/29/23 16:24 I
--- NOTE | 2023-05-01 08:33 | PM.DS ---
DS: Admitting Diagnosis Discharge Date May 01, 2023 Admitting Diagnosis pelvic abscess DS: Discharge Diagnosis Discharge Diagnosis (1) Postoperative abscess of pelvis in female: Code(s): T81.49XA - Infection following a procedure, other surgical site, initial encounter; N73.9 - Female pelvic inflammatory disease, unspecified Status: Acute DS: Summary Hospital Course Hospital Course: 42-year-old female admitted through the emergency department for pelvic abscess, presented with fever and diarrhea. Transvaginal drain placed in the operating room after 18 hours of antibiotics. Continued in the hospital for 1 more day with IV antibiotics. Discharged home on oral antibiotics. Time Spent with Patient Time attestation: Total time spent providing and/or coordinating discharge services: DS: Data Data Completed and Pending Labs on day of discharge: Labs from last 24 hours 05/01/23 05/01/23 04/30/23 07:00 06:56 05:45 WBC 12.3 H RBC 3.22 L Hgb 9.9 L Hct 29.7 L MCV 92.2 MCH 30.7 MCHC 33.3 RDW 14.3 Plt Count 305 MPV 10.4 Sodium Pending 133 L Potassium Pending 3.0 L Chloride Pending 105 Carbon Dioxide Pending 24 Anion Gap Pending 4 L BUN Pending 8 Creatinine 0.60 L Pending 0.50 L Estim Creat Clear Calc 126 Pending 148 Estimated GFR > 60 Pending > 60 Glucose Pending 107 Calcium Pending 7.9 L Total Bilirubin Pending AST Pending ALT Pending Alkaline Phosphatase Pending Total Protein Pending Albumin Pending Vancomycin Trough 6.9 L Preliminary micro results at discharge 04/29/23 15:22 Blood Culture - Preliminary Blood 04/29/23 16:16 Blood Culture - Preliminary Blood Discharge Plan Discharge Consulting providers: Claire Chapman Discharging Clinician: Shahnaz Rosario Patient Disposition: Home, Self-Care Activity: pelvic rest Diet: regular Discharge Instructions: Remove the Scopolamine patch that was placed behind your ear in 72 hours or less. Wash your hands after touching. Patient Instructions: Antibiotic Form Stand Alone Forms: General Discharge Information Follow-up/Referrals: Shahnaz Rosario MD [Physician] - Discharge Medications: New cefuroxime axetil 500 mg tablet 500 mg PO BID Qty: 20 0RF clindamycin HCl 300 mg capsule 300 mg PO Q6H Qty: 40 0RF Continued cholecalciferol (vitamin D3) [Vitamin D3] 25 mcg (1,000 unit) Tablet 25 mcg PO DAILY oxycodone-acetaminophen 5-325 mg tablet 1 tablet PO Q4H PRN (Reason: Pain (Scale Score 7-10)) Date of admission: 04/29/23 17:45 Primary Care Provider: UNKNOWN,DOCTOR Admitting Provider: Shahnaz Rosario Attending physician on admission: Shahnaz Rosario Condition: Stable
[2023-05-01 08:40] LABS: Alanine Aminotransferase 18 U/L (6-35); Albumin Level 3.3 g/dL (3.5-5.1); Alkaline Phosphatase 98 U/L (38-126); Anion Gap 5 mmol/L (8-16); Aspartate Amino Transferase 26 U/L (14-36); Bilirubin,Total 0.2 mg/dL (0.2-1.3); Blood Urea Nitrogen 8 mg/dL (7-17); Calcium 8.5 mg/dL (8.4-10.2); Carbon Dioxide 26 mmol/L (22-30); Chloride 106 mmol/L (98-107); Estimated CRCL calculation 126 ml/min; Estimated Glomerular Filt Rate > 60; Glucose 148 mg/dL (65-110); Potassium 3.7 mmol/L (3.4-5.0); Sodium 137 mmol/L (137-145)
== END 2023-05-01 09:15 | disposition home or self-care (01) | DRG 857 ==
LOC: ANHED 17:49 → ANH3MED 18:22
PROVIDERS: Emergency Medicine; Physician Assistant; Admitting Provider Obstetrics & Gynecology; Emergency Provider Student in an Organized Health Care Education/Training Program; Visit Provider Obstetrics & Gynecology
PROC: 0U9G7ZZ Drainage of Vagina, Via Natural or Artificial Opening (ICD-10-PCS; CPT 57260; principal; 2023-04-30 13:00)
DX: T81.49XA Infection following a procedure, other surgical site, initial encounter (principal); N73.0 Acute parametritis and pelvic cellulitis; F17.210 Nicotine dependence, cigarettes, uncomplicated; Z20.822 Contact with and (suspected) exposure to COVID-19
CPT/HCPCS: 36415; 71045; 71275; 74177; 80048; 80053; 80202; 81001; 82565; 83605; 83690; 85025; 85027; 85610; 85730; 86140; 87040; 87086; 87088; 87637; 87641; 93005; 96361; 96374; 99285; A9270; J0330; J0692; J0696; J1100; J1836; J2250; J2405; J2704; J3010; J3370; J7030; J7050; J7120; Q9967